=== PATIENT | male | born 1995 | race Hispanic/Latino ===

== ENCOUNTER 2017-02-05 13:36 | Emergency (ER) | payer OTHER ==
[2017-02-05 13:48] VITALS: BP 162/81; PULSE 79; RESP 16; TEMP 98; O2SAT 100
[2017-02-05] MEDS ORDERED: Lidocaine 1% Inj (20ml) ONE (14:05)
[2017-02-05] MEDS ORDERED: Lidocaine 2% w Epi 1:100,000 Inj IJ ONE (14:06)
[2017-02-05] MEDS ORDERED: Lidocaine 1% w Epi 1:100,000 Inj IJ STA (14:10)
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
[2017-02-05] MEDS ORDERED: Lidocaine 2% w Epi 1:100,000 Inj IJ STA (15:00)
== END 2017-02-05 15:03 | disposition home or self-care (01) ==
LOC: H.ER 13:36
DX: S01.81XA Laceration without foreign body of other part of head, initial encounter (principal); W19.XXXA Unspecified fall, initial encounter; Y92.410 Unspecified street and highway as the place of occurrence of the external cause